=== PATIENT | female | born 1960 | race Caucasian/White ===

== ENCOUNTER 2017-01-23 09:57 | Inpatient (IN) | payer BC ==
[2017-01-19 10:20] VITALS: BMI 28.1
--- NOTE | 2017-01-23 07:45 | P.GSHP ---
History of Present Illness H&P Date: 01/23/17 CHIEF COMPLAINT: Severe gastroesophageal reflux disease. HISTORY OF PRESENT ILLNESS: Lakia Pope is a very pleasant 56-year-old female who has known history of gastroesophageal reflux disease as well as colon polyps. She was being evaluated for a hiatal hernia repair approximately two years ago, but because of work restrictions, this was deferred. She now reports that she is unable to swallow or lay flat. Her symptoms are worse where she is chronically aspirating. She now presents for further evaluation and management. Incidentally , she has history of colon tubular adenomas and is also due for repeat colon screening. She completed a manometry consistent with no evidence of achalasia or scleroderma. She has weak lower esophageal sphincter pressure including short valve. 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 Of her reflux. PAST MEDICAL HISTORY: Please see list. PAST SURGICAL HISTORY: Please see list. MEDICATIONS: Please see list. ALLERGIES: Please see list. SOCIAL HISTORY: No illicit drug use FAMILY HISTORY: No reports of Crohn disease or ulcerative colitis. REVIEW OF ORGAN SYSTEMS: GI: Severe gastroesophageal reflux disease. Personal history of colon polyps. Her last colonoscopy was in 2014. Breast: History of mastectomy of the right breast. CONSTITUTIONAL: No fevers or chills. HEENT: Denies any trouble with vision, hearing or nosebleeds. No difficulty swallowing. LYMPHATIC: The patient denies any lumps and bumps around the neck. ENDOCRINE: Denies any thyroid disorders. Denies any blood sugar glucose intolerance. RESPIRATORY: Denies pneumonia. Denies any troubles with breathing or dyspnea on exertion. CARDIOVASCULAR: Denies any chest pain, palpitations, or recent heart attacks. GENITOURINARY: Denies any blood in urine or increased urinary frequency. MUSCULOSKELETAL: Denies any back pain, stiffness or joint arthritis. NEUROLOGIC: Denies any numbness or tingling along the distal extremities. No seizure disorders or headaches. PSYCHIATRIC: Denies any depression or suicidal ideation. HEMATOLOGIC: Denies any abnormal bleeding or bruising. PHYSICAL EXAM: Patient is a 56-year-old female. Vital signs: T: 98.3 degrees. P: 78, R: 14, BP: 117/76, Ht: 57, Wt: 176 lbs. Breast: Absent right breast. GENERAL: Well developed and in no acute distress. Pleasant. HEENT: No sclera icterus. Extraocular movements grossly intact. Moist buccal mucosa. Head is atraumatic, normocephalic. Hears conversational speech. No nasal drainage. NECK: Supple without lymphadenopathy. No JV distention. CHEST: Non-labored respirations and equal bilateral excursions. CARDIOVASCULAR: Regular rate and rhythm. Palpable 2+ radial pulses. ABDOMEN: Soft. Non-tender. Nondistended. MUSCULOSKELETAL: No clubbing, cyanosis or edema. NEUROLOGIC: No focal or lateralizing signs. PSYCH: Appropriate affect. Alert and oriented to person, place and time. ASSESSMENT: 1. Personal history of diaphragmatic hiatal hernia, symptomatic. 2. History of aspiration. 3. Colon adenomas. PLAN: 1. As for her colonoscopy screening, this maybe deferred and she has more urgent issue including chronic aspiration from her reflux disease. 2. Despite medical treatment, her symptoms are worse. Laparoscopic paraesophageal hiatal hernia repair with mesh including Darlene fundoplasty were described in detail possibility of robotic assist approach including open technique reviewed. 3. DVT prophylaxis. 4. Antibiotics prophylaxis. 5. Inpatient hospitalization anticipated for at least one night. 6. Strict no lifting over 4 pounds for 4 weeks was reviewed. 7. She also understands that there is lifetime Darlene fundoplasty diet, which will need to be adhered too. Past Medical History Past Medical History: Asthma, Cancer, GERD/Reflux, Hypertension Additional Past Medical History / Comment(s): hx. breast cancer 1996, hx. palpitations History of Any Multi-Drug Resistant Organisms: None Reported Past Surgical History: Breast Surgery, Cholecystectomy, Tubal Ligation Additional Past Surgical History / Comment(s): right mastectomy, varicose vein surg Past Anesthesia/Blood Transfusion Reactions: Previous Problems w/ Anesthesia Additional Past Anesthesia/Blood Transfusion Reaction / Comment(s): trouble waking up once from surg. Past Psychological History: Depression Smoking Status: Never smoker Past Alcohol Use History: Occasional Past Drug Use History: None Reported - Past Family History Mother Family Medical History: No Reported History Medications and Allergies Home Medications Medication Instructions Recorded Confirmed Type DULoxetine HCL [Cymbalta] 60 mg PO DAILY 01/19/17 01/19/17 History Levalbuterol Tartrate [Xopenex Hfa 1 puff INHALATION Q6H PRN 01/19/17 01/19/17 History Inhaler] Montelukast [Singulair] 10 mg PO DAILY 01/19/17 01/19/17 History Nebivolol HCl [Bystolic] 2.5 mg PO DAILY 01/19/17 01/19/17 History Pantoprazole Sodium [Protonix] 40 mg PO DAILY 01/19/17 01/19/17 History Allergies Allergy/AdvReac Type Severity Reaction Status Date / Time morphine AdvReac Nausea & Verified 01/19/17 10:07 Vomiting
[~2017-01-23 09:57] MED LIST: ACETAMINOPHEN IV (For NPO) 1,000 MG in EMPTY BAG 1 BAG IVPB ONE; DEXAMETHASONE SOD PHOSPHATE 10 MG/ML 1 ML VIAL IV ONE; HEPARIN SODIUM,PORCINE 5,000 UNIT/ML 1 ML VIAL SQ ONE; HYDROmorphone 1 MG/ML 1 ML SYRINGE IVP PRN; LACTATED RINGERS 1,000 ML IV SCH; LIDOCAINE 1% 20 ML VIAL (10MG/ML) FOR IV START INTRADERMA PRN; MIDAZOLAM 2 MG/2 ML VIAL IV PRN; ONDANSETRON 4 MG/2 ML VIAL IVP ONE; SCOPOLAMINE 1.5MG/72HR PATCH TRANSDERM ONE; ceFAZolin 2 GM in SODIUM CHLORIDE 0.9% 100 ML IVPB ONE
[2017-01-23] MEDS ORDERED: LACTATED RINGERS 1,000 ML IV ONE ×3 (10:14→13:41)
[2017-01-23 10:48] LABS: Magnesium 2.2 mg/dL (1.6-2.3)
[2017-01-23] MEDS ORDERED: PHENYLEPHRINE-0.9% NACL SYG 1 MG/10 ML SYRINGE ONE (11:23)
[2017-01-23] MEDS ORDERED: ePHEDrine 50 MG/ML 1 ML AMP ONE (11:23)
[2017-01-23] MEDS ORDERED: PROPOFOL 10 MG/ML 20 ML VIAL IV ONE (11:23)
[2017-01-23] MEDS ORDERED: MIDAZOLAM 2 MG/2 ML VIAL ONE (11:23)
[2017-01-23] MEDS ORDERED: SUCCINYLCHOLINE CHLORIDE 100 MG/5 ML SYR IV ONE (11:23)
[2017-01-23] MEDS ORDERED: fentaNYL (PF) 50 MCG/ML 2 ML AMP ONE (11:23)
[2017-01-23] MEDS ORDERED: NEOSTIGMINE 1 MG/ML 10 ML VIAL ONE (11:23)
[2017-01-23] MEDS ORDERED: GLYCOPYRROLATE 0.2 MG/ML 2 ML VIAL ONE (11:23)
[2017-01-23] MEDS ORDERED: ROCURONIUM BROMIDE 10 MG/ML 10 ML VIAL IV ONE (11:23)
[2017-01-23] MEDS ORDERED: BUPIVACAIN-EPI 0.25%-1:200,000 30 ML VIAL SQ ONE (11:47)
[2017-01-23] MEDS ORDERED: diphenhydrAMINE 50 MG/ML 1 ML VIAL IVP PRN (13:15)
[2017-01-23] MEDS ORDERED: NALOXONE 0.4 MG/ML 1 ML VIAL IV PRN (13:15)
[2017-01-23] MEDS ORDERED: SIMETHICONE 40 MG/0.6 ML DROPS 2,000 MG/30 ML BOTTLE PO PRN (13:15)
[2017-01-23] MEDS ORDERED: ACETAMINOPHEN IV (For NPO) 1,000 MG in EMPTY BAG 1 BAG IVPB ONE (13:15)
[2017-01-23] MEDS ORDERED: HYOSCYAMINE ORAL DROPS 1.875 MG/15 ML BOTTLE PO PRN (13:15)
--- NOTE | 2017-01-23 13:15 | P.PCN ---
Date of Procedure: 01/23/17 Preoperative Diagnosis: Gastroesophageal reflux disease, hiatal hernia, regurgitation Postoperative Diagnosis: Same, paraesophageal hiatal hernia 7 cm Procedure(s) Performed: Laparoscopic midline diaphragmatic paraesophageal hiatal hernia repair, 7 cm without strangulation with 8 x 8 cm [place] Biopatch A mesh; laparoscopic Darlene fundoplasty; intraoperative esophagogastro duodenoscopy Implants: [place] Biopatch a 8 x 8 cm Anesthesia: GETA, local Surgeon: Virginia Dobbs Estimated Blood Loss (ml): 1 Pathology: none sent Condition: stable Disposition: floor Operative Findings: 7 cm paraesophageal midline diaphragmatic hiatal hernia without strangulation, 56-[place] bougie repair, Hill grade 1 repair confirmed upon upper endoscopy, chronic gastritis
[2017-01-23] MEDS ORDERED: ACETAMINOPHEN TAB 325 MG TAB PO PRN (13:18)
[2017-01-23] MEDS ORDERED: ALBUTEROL NEBULIZED 2.5 MG/3 ML INHALATION PRN ×2 (13:19→13:29)
[2017-01-23] MEDS: 0.9% NACL WITH KCL 20 MEQ/L 1,000 ML IV SCH (15:33)
[2017-01-23] MEDS: KETOROLAC 30 MG/ML 1 ML VIAL IVP SCH (18:11)
[2017-01-23] MEDS: METOCLOPRAMIDE 5 MG/ML 2 ML VIAL IVP SCH (18:17)
[2017-01-23] MEDS ORDERED: fentaNYL PCA 300 MCG/30 ML SYRINGE IV PRN (21:48)
[2017-01-24] MEDS: 0.9% NACL WITH KCL 20 MEQ/L 1,000 ML IV SCH (00:44)
[2017-01-24] MEDS: METOCLOPRAMIDE 5 MG/ML 2 ML VIAL IVP SCH ×3 (00:45→13:15)
[2017-01-24] MEDS: KETOROLAC 30 MG/ML 1 ML VIAL IVP SCH ×3 (00:45→12:31)
[2017-01-24] MEDS: ceFAZolin 2 GM in SODIUM CHLORIDE 0.9% 100 ML IVPB SCH ×2 (00:45→09:30)
[2017-01-24 07:21] LABS: Anion Gap 9 mmol/L; Blood Urea Nitrogen 11 mg/dL (7-17); Carbon Dioxide 23 mmol/L (22-30); Chloride 110 mmol/L (98-107); Non-African American GFR(MDRD) >60 (>60 ml/min/1.73 sqM); Phosphorous 3.9 mg/dL (2.5-4.5); Potassium 3.9 mmol/L (3.5-5.1); Sodium 142 mmol/L (137-145)
[2017-01-24] MEDS ORDERED: 0.9% NACL WITH KCL 20 MEQ/L 1,000 ML IV SCH (08:00)
--- NOTE | 2017-01-24 08:37 | FL ---
Single contrast upper GI examination CLINICAL HISTORY: 56-year-old female postop Darlene fundoplication. Total fluoroscopy time: 46 seconds. TECHNIQUE: Limited upper GI is performed utilizing 50 mL Omnipaque 350. FINDINGS: The patient swallowed oral contrast without difficulty or delay. Esophageal peristalsis and motility are within normal limits. There is initially mild delay in passage of contrast from the esophagus i nto the stomach. As the patient continues to swallow, transit improves. There are postsurgical change s of Darlene fundoplication. There is no evidence of contrast extravasation to suggest leak. No signif icant postsurgical free air seen. IMPRESSION: No evidence of leak status post Darlene fundoplication. Minimal postoperative obstruction which gradua lly improves during the study.
[2017-01-24] MEDS ORDERED: PANTOPRAZOLE 40 MG/10 ML VIAL IV SCH (09:00)
[2017-01-24] MEDS ORDERED: MONTELUKAST 10 MG TAB PO SCH (09:00)
[2017-01-24] MEDS ORDERED: ENOXAPARIN 40 MG/0.4 ML SYRINGE SQ SCH (09:00)
[2017-01-24] MEDS ORDERED: NEBIVOLOL 5 MG TAB PO SCH (09:00)
[2017-01-24 14:44] VITALS: BP 130/76; PULSE 69; RESP 18; TEMP 97.9
--- NOTE | 2017-01-24 15:08 | P.DS ---
Providers Date of admission: 01/23/17 09:57 Lakia Pope is a very pleasant 56-year-old female who has known history of gastroesophageal reflux disease as well as colon polyps. She was being evaluated for a hiatal hernia repair approximately two years ago, but because of work restrictions, this was deferred. She now reports that she is unable to swallow or lay flat. Her symptoms are worse where she is chronically aspirating. She now presents for further evaluation and management. Incidentally , she has history of colon tubular adenomas and is also due for repeat colon screening. She completed a manometry consistent with no evidence of achalasia or scleroderma. She has weak lower esophageal sphincter pressure including short valve. 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 Patient elected to undergo on January 23 Laparoscopic midline diaphragmatic paraesophageal hiatal hernia repair, 7 cm without strangulation with 8 x 8 cm [place] Biopatch A mesh; laparoscopic Darlene fundoplasty; intraoperative esophagogastro duodenoscopy Operative Findings: 7 cm paraesophageal midline diaphragmatic hiatal hernia without strangulation, 56-[place] bougie repair, Hill grade 1 repair confirmed upon upper endoscopy, chronic gastritis Postprocedure patient had a limited upper GI showed no evidence of a leak. Minimal postoperative obstruction which gradually improved during the study. Patient was felt to be hemodynamically stable and appropriate proceed with a discharge to home Impression discharge diagnosis Personal history of diaphragmatic hiatal hernia, symptomatic. History of aspiration. Colon adenomas. Gastroesophageal reflux disease, hiatal hernia, regurgitation Done on January Laparoscopic midline diaphragmatic paraesophageal hiatal hernia repair, 7 cm without strangulation with 8 x 8 cm [place] Biopatch A mesh; laparoscopic Darlene fundoplasty; intraoperative esophagogastro duodenoscopy paraesophageal hiatal hernia 7 cm Operative Findings: 7 cm paraesophageal midline diaphragmatic hiatal hernia without strangulation, 56-[place] bougie repair, Hill grade 1 repair confirmed upon upper endoscopy, chronic gastritis The above dictated assessment and findings were discussed with dr Dilia Julian and the plan of care have been dictated as directed. Soo Garcia nurse practitioner acting as a scribe for Dr. Dobbs Attending physician: Virginia Dobbs Primary care physician: Stated None Plan - Discharge Summary Discharge Medication List DULoxetine HCL [Cymbalta] 60 mg PO DAILY 01/19/17 [History] Levalbuterol Tartrate [Xopenex Hfa Inhaler] 1 puff INHALATION RT-Q6H PRN [History] Montelukast [Singulair] 10 mg PO DAILY 01/19/17 [History] Nebivolol HCl [Bystolic] 2.5 mg PO DAILY 01/19/17 [History] Pantoprazole Sodium [Protonix] 40 mg PO DAILY 01/19/17 [History] Acetaminophen Tab [Tylenol] 650 mg PO Q6HR PRN #0 tab 01/24/17 [Rx] Follow up Appointment(s)/Referral(s): Virginia Dobbs MD [STAFF PHYSICIAN] - 01/30/17 Activity/Diet/Wound Care/Special Instructions: darlene clear liquid diet Discharge Disposition: HOME SELF-CARE
[2017-01-25] MEDS ORDERED: BISACODYL 5 MG TABLET.DR PO PRN (08:00)
--- NOTE | 2017-01-25 08:01 | P.OP ---
Date of Procedure: 01/23/17 Description of Procedure: SURGEON: CHEMA TAYLOR MD PALLIATIVE MEDICINE PHYSICIAN: NICOLAS ORTEGA PREOPERATIVE DIAGNOSES: 1. Regurgitation. 2. Symptomatic diaphragmatic hiatal hernia. 3. Gastroesophageal reflux disease. 4. Personal history of breast cancer. 5. Asthma. 6. Essential hypertension. 7. Depression without psychoses. 8. Ineffective esophageal motility secondary to severe reflux disease. POSTOPERATIVE DIAGNOSES: 1. Regurgitation. 2. Symptomatic diaphragmatic hiatal hernia. 3. Gastroesophageal reflux disease. 4. Personal history of breast cancer. 5. Asthma. 6. Essential hypertension. 7. Depression without psychoses. 8. Paraesophageal midline diaphragmatic hernia, 7 cm. 9. Ineffective esophageal motility secondary to severe reflux disease. OPERATION: 1. Laparoscopic repair of incarcerated paraesophageal hiatal hernia 7 cm with mesh, [place] Biopatch A 8 x 8 cm. 2. Laparoscopic Darlene fundoplasty. 3. Intraoperative esophagogastroduodenoscopy with biopsies along antrum. ANESTHESIA: General with 30 mL 0.25% Marcaine with epinephrine. ESTIMATED BLOOD LOSS: 1 mL SPECIMENS: None. COMPLICATIONS: None. INDICATIONS: The patient is a 56-year-old female with long-standing history of gastroesophageal reflux disease including regurgitation. She completed an upper endoscopy demonstrating a symptomatic diaphragmatic hiatal hernia. Additionally a manometry was performed consistent with ineffective esophageal motility without evidence of achalasia or scleroderma. Her total lower esophageal sphincter length including intra-abdominal length were short. Surgical intervention with a paraesophageal hiatal hernia repair and mesh was described including Darlene fundoplasty. Risks and benefits including but not limited to collapse of the lung, dysphagia, recurrence, need for revisional surgery were reviewed in detail. Informed consent was obtained as all benefits and risks were described. DESCRIPTION: Patient was brought into the operating room, laid in supine position on a split-leg table. After general induction, the abdomen was prepped and draped in a standard sterile fashion using ChloraPrep. An [place] drape was placed. Alfonso catheter was not place as the patient had voided. A timeout protocol was confirmed with the surgical team, for which the patient's name, procedure to be performed including DVT prophylaxis with bilateral SCDs, and preoperative antibiotics were also confirmed. From the xiphoid to the umbilicus, an incision was made approximately 16.5 cm distal and off to the left of the xiphoid using #11 blade after localizing the skin with anesthetic. A 0-degree 5 mm laparoscopic trocar entry was performed to enter the peritoneal cavity at 12 cm distal to the xiphoid. Diagnostic laparoscopy demonstrated no hepatomegaly. Additionally, a large 7 cm diaphragmatic paraesophageal hiatal hernia was identified incorporating the gastric cardia into the thoracic cavity. A 5 mm trocar was placed along the left lateral costal margin followed by a 10 mm port along the left midclavicular line. A Jayshree medium-sized liver retractor was placed below the xiphoid and held in place using an iron human resource internship. The patient was placed in steep reverse Trendelenburg position. Initial attention was brougth at the hiatus where a 7-cm defect of the anterior hiatus was measured. Circumferentially, the phrenoesophageal ligament and the hiatus were mobilized such that the right and left kaleb were visualized. The final defect was 7 cm in size. The distal esophagus intra-abdominal length of at least 3 cm was obtained as moderate dissection into the chest was performed. The bilateral vagi nerves were identified and freed from harm during this portion of dissection. To adequately mobilize the posterior esophagus, the greater curvature of the stomach was mobilized along the short gastrics. The hiatus was reapproximated using 2-0 Surgidac on an Endo Stitch with a [id number] suture and 1 single stitch posteriorly. The hiatus was still very generous in its opening and a pursestring suture along the anterior hiatus was performed to close the defect. [place] Biopatch A 8 x 8 cm was cut in a "nunez-hole fashion" and placed as an onlay and buttressed to the posterior and anterior hiatal hernia repair. The mesh was tacked to the left kaleb using 2-0 Surgidac. The hiatal repair was consistent with a 56-[place] bougie as a fenestrated grasper had easily passed through the repair. I then went to the head of the bed to do an intraoperative esophagogastroduodenoscopy. The squamocolumnar junction laid into the intra- abdominal cavity. Additionally no injury to the stomach or esophagus was identified. No gastric or duodenal ulcers were found. Moderate bile was found in the stomach and evacuated. Chronic gastritis found along the antrum. The stomach was desufflated. This concluded endoscopic portion procedure. All instruments and pneumoperitoneum were evacuated from the abdominal cavity. The incisions were reapproximated using 4-0 Monocryl in a subcuticular fashion for the skin. Total of 30 mL 0.25% Marcaine with epinephrine was infiltrated to all wounds for postop analgesia. Dermabond was applied to the skin. At the end of the procedure, needle, sponge, and instrument count was verified correct by certified surgical technician. Total of 1 mL blood loss. Intraoperative films were taken and shared with the patient's family. FINDINGS: 1. 7 cm midline paraesophageal hiatal hernia, incarcerated type. 2. [place] Biopatch A 8 x 8 cm used for hernioplasty of the hiatus. 3. Hiatus repair consistent with 56-[place] bougie.
--- NOTE | 2017-02-24 06:29 | P.PN ---
Subjective Principal diagnosis: Gastroesophageal reflux disease Patient is status post Darlene fundoplasty with hiatal hernia. No reports of dysphagia. She is tolerating liquids. Objective - Vital Signs Vital signs: Vital Signs Temp 98.0 F 01/23/17 14:32 Pulse 89 01/23/17 18:09 Resp 20 01/23/17 18:09 BP 125/68 01/23/17 18:09 Pulse Ox 94 L 01/23/17 18:09 Intake & Output 01/23/17 01/23/17 01/24/17 06:59 18:59 06:59 Intake Total 2350 Output Total 1 Balance 2349 Weight 81.647 kg Intake: IV 2350 Output: Estimated Blood Loss 1 - Exam GENERAL: Well developed and in no acute distress. Pleasant. HEENT: No sclera icterus. Extraocular movements grossly intact. Moist buccal mucosa. Head is atraumatic, normocephalic. Hears conversational speech. No nasal drainage. NECK: Supple without lymphadenopathy. No JV distention. CHEST: Non-labored respirations and equal bilateral excursions. CARDIOVASCULAR: Regular rate and rhythm. Palpable 2+ radial pulses. ABDOMEN: Soft, nontender. Mild distention. Incisions are clean dry and intact with Dermabond. MUSCULOSKELETAL: No clubbing, cyanosis or edema. NEUROLOGIC: No focal or lateralizing signs. PSYCH: Appropriate affect. Alert and oriented to person, place and time. - Labs CBC & Chem 7: 01/24/17 06:49 Assessment and Plan (1) Paraesophageal hiatal hernia Status: Acute (2) Reflux esophagitis Status: Acute (3) History of breast cancer Status: Acute (4) Ineffective esophageal motility Status: Acute (5) Depression Status: Acute (6) Hypertension Status: Acute (7) S/P hernia repair Status: Acute Plan: 1. Clinically she is doing well. 2. Darlene diet reviewed. 3. Anticipated discharge tomorrow.
== END 2017-01-24 15:28 | disposition home or self-care (01) | DRG 328 ==
LOC: 2ORWHC 09:57 → 6PED 13:11
PROVIDERS: ADMIT Surgery Plastic and Reconstructive Surgery; ATTEND Surgery Plastic and Reconstructive Surgery
PROC: 0BUS4JZ (ICD-10-PCS; principal; 2017-01-23 11:30)
DX: K44.9 Diaphragmatic hernia without obstruction or gangrene (principal); I10 Essential (primary) hypertension; F32.9 Major depressive disorder, single episode, unspecified; J45.909 Unspecified asthma, uncomplicated; K21.9 Gastro-esophageal reflux disease without esophagitis; K29.50 Unspecified chronic gastritis without bleeding; K63.5 Polyp of colon; Z79.899 Other long term (current) drug therapy; Z85.3 Personal history of malignant neoplasm of breast; Z88.5 Allergy status to narcotic agent
CPT/HCPCS: 74240; 80051; 82565; 83735; 84100; 84520; 93005

== ENCOUNTER 2024-06-05 06:30 | Day surgery (SDC) | payer OTHER ==
[2024-06-05] MEDS ORDERED: LACTATED RINGERS 1,000 ML BAG ONE (09:12)
[2024-06-05] MEDS ORDERED: PROPOFOL 10 MG/ML 20 ML VIAL IV ONE (09:36)
== END 2024-06-05 10:45 ==
LOC: ORWHC2ENDO 06:30
PROVIDERS: ATTEND Surgery Plastic and Reconstructive Surgery
DX: Z12.11 Encounter for screening for malignant neoplasm of colon (principal); D12.0 Benign neoplasm of cecum; D12.2 Benign neoplasm of ascending colon; E78.5 Hyperlipidemia, unspecified; I48.91 Unspecified atrial fibrillation; J45.909 Unspecified asthma, uncomplicated; K21.9 Gastro-esophageal reflux disease without esophagitis; Z79.899 Other long term (current) drug therapy; Z88.5 Allergy status to narcotic agent
CPT/HCPCS: 45385; 88305